=== PATIENT | female | born 1990 | race Caucasian/White ===

== ENCOUNTER 2019-07-13 10:39 | Emergency (ER) | payer BC ==
[~2019-07-13] VITALS: Ht 170.2 cm; Wt 91.6 kg
[2019-07-13 13:28] VITALS: BP 131/84
== END 2019-07-13 14:08 | disposition home or self-care (01) ==
LOC: ED 13:54
DX: R10.11 Right upper quadrant pain (principal); R10.13 Epigastric pain
CPT/HCPCS: 36415; 76700; 80053; 83690; 84703; 85025; 96372; 99284; J1885